=== PATIENT | male | born 1965 | race Caucasian/White ===

== ENCOUNTER → 2018-10-09 | Outpatient (CLI) | payer OTHER ==
--- NOTE | 2018-10-09 16:20 | PCVCIMAG ---
APPROVED REPORT Study performed: 10/09/2018 15:08:13 EXAM: Comprehensive 2D, Doppler, and color-flow Echocardiogram Patient Location: Echo lab Status: routine BSA: 2.04 HR: 101 bpmBP: 104/80 mmHg Rhythm: Atrial Fibrillation Other Information Study Quality: Adequate Risk Factors: Cardiac Risk Factors: HTN Indications Atrial Fibrillation 2D Dimensions RVDd: 34.76 mm IVSd: 8.76 (7-11mm)LVOT Diam: 16.07 (18-24mm) LVDd: 37.92 mm PWd: 9.77 (7-11mm)Ascending Ao: 35.72 (22-36mm) LVDs: 27.82 (25-40mm) Left Atrium: 40.60 (27-40mm) Aortic Root: 34.60 mm LV Single Plane 4CH: 51.68 % LV Single Plane 2CH: 63.03 % Biplane EF: 58.8 % Volumes Left Atrial Volume (Systole) Single Plane 4CH: 41.60 mLSingle Plane 2CH: 48.23 mL LA ESV Index: 24.00 mL/m2 Aortic Valve AoV Peak Felix.: 1.04 m/s AO Peak Gr.: 5.13 mmHgLVOT Max P.60 mmHg LVOT Max V: 0.80 m/s MARSHALL Vmax: 1.55 cm2 Mitral Valve E/A Ratio: 0.9 MV Decel. Time: 1350.79 ms MV E Max Felix.: 1.05 m/s MV A Felix.: 1.17 m/s MV PHT: 391.73 ms Pulmonary Valve PV Peak Gr.: 2.47 mmHg Tricuspid Valve TR Peak Felix.: 2.32 m/s TR Peak Gr.: 21.51 mmHg Left Ventricle The left ventricle is normal size. There is normal LV segmental wall motion. There is normal left ventricular wall thickness. Left ventricular systolic function is normal. The left ventricular ejection fraction is within the normal range. LVEF is 55-60%. This study is not technically sufficient to allow evaluation of the LV diastolic function due to atrial fibrillation. Right Ventricle The right ventricle is normal size. The right ventricular systolic function is normal. Atria The left atrium size is normal. The right atrium size is normal. Aortic Valve The aortic valve is normal in structure. No aortic regurgitation is present. There is no aortic valvular stenosis. Mitral Valve The mitral valve is normal in structure. Mild mitral regurgitation. No evidence of mitral valve stenosis. Tricuspid Valve The tricuspid valve is normal in structure. Mild tricuspid regurgitation. Pulmonary artery pressure is 30mmHg. Pulmonic Valve The pulmonary valve is normal in structure. There is no pulmonic valvular regurgitation. Great Vessels The aortic root is normal in size. IVC is normal in size and collapses >50% with inspiration. Pericardium There is no pericardial effusion. <Conclusion> Left ventricular systolic function is normal. There is normal LV segmental wall motion. LVEF is 55-60%. The aortic valve is normal in structure. No aortic regurgitation or stenosis. The mitral valve is normal in structure. Mild mitral regurgitation. Mild tricuspid regurgitation. Pulmonary artery pressure is 30mmHg. There is no pericardial effusion.
--- NOTE | 2018-10-09 16:49 | PCVCIMAG ---
APPROVED REPORT Patient Location: Echo lab Room #: Stress Nurse: Mila Costa RN Treadmill Stress Test: The patient exercised according to the ROSALIA for 6:34 mins, achieving a work level of Max. METS 8.70. The resting heart rate of 95 bpm mayela to a maximal heart rate of 226bpm. This value represents 100% of the maximal. The resting blood pressure of 104/80 mmHg, mayela to a maximum blood pressure of 130/80mmHg. The exercise test was stopped due to heart rate. EKG atrial fibrillation with early R-wave progression Stress EKG: Atrial fibrillation with a rapid ventricular response, occasional apparent conduction. Mild coving of the ST segments not meeting diagnostic criteria for being an ischemic response. Conclusion 1. Maximal treadmill exercise study of low probability for provokable ischemia. 2. No subjective signs of ischemia such as chest pain or anginal-like symptoms. 3. The study was associated with average exercise capacity (8.7 METS)
== END | disposition home or self-care (01) ==
LOC: PCVCIMAG 14:59
PROVIDERS: ATTEND Internal Medicine
DX: I08.1 Rheumatic disorders of both mitral and tricuspid valves (principal); I48.91 Unspecified atrial fibrillation; I10 Essential (primary) hypertension
CPT/HCPCS: 93017; 93306